=== PATIENT | female | born 1965 | race Caucasian/White ===

== ENCOUNTER → 2017-06-14 | Outpatient (CLI) | payer OTHER ==
[~2017-06-14] MED LIST: CALCIUM 600 +1 EA15 PO; CLARITIN10 M3 PO; LO-DOSE ASPIRIN81 M1 PO; OMEPRAZOLE40 M1 PO; ZESTORETIC 20-1 EAC1 PO
== END | disposition home or self-care (01) ==
LOC: RAD 11:00
DX: S83.232A Complex tear of medial meniscus, current injury, left knee, initial encounter (principal); M25.462 Effusion, left knee; M94.8X6 Other specified disorders of cartilage, lower leg
CPT/HCPCS: 73721